=== PATIENT | female | born 1995 | race Caucasian/White ===

== ENCOUNTER 2018-08-29 12:19 | Emergency (ER) | payer OTHER, MEDICAID ==
[~2018-08-29] VITALS: Ht 162.6 cm; Wt 61.2 kg
[~2018-08-29 12:19] MED LIST: ACCUNEB SO1.25 MG/1; APAP500 PO; BCP; CYCLOBENZAPRINE5 MG PO; DOXYCYCLINE 10100 MG PO; FLEXERIL PO; GAS RELIEF125 M1 PO; IBUPROFEN 800800 M1 PO; MACROBID 100 M100 M1 PO; NAPROSYN250 MG PO; PRILOSEC40 MG PO; TRAMADOL 50 MG50 MG PO; ULTRAM 50MG TAB50 MG PO
[2018-08-29] MEDS ORDERED: DEPO-PROVER150 MG/M1 IM (12:44)
[2018-08-29 14:37] VITALS: BP 133/73
== END 2018-08-29 14:38 | disposition home or self-care (01) ==
LOC: M.ERS 12:19
DX: S40.011A Contusion of right shoulder, initial encounter (principal); X50.1XXA Overexertion from prolonged static or awkward postures, initial encounter; Y93.89 Activity, other specified; Y92.89 Other specified places as the place of occurrence of the external cause; Y99.8 Other external cause status

== ENCOUNTER 2018-09-09 09:04 | Emergency (ER) | payer OTHER, MEDICAID ==
[~2018-09-09] VITALS: Ht 162.6 cm; Wt 61.2 kg
[~2018-09-09 09:04] MED LIST changes: +DEPO-PROVER150 MG/M1 IM
[2018-09-09 10:17] LABS: ABSOLUTE BASOPHILS 0.1 thou/uL (0.0-0.2); ABSOLUTE EOSINOPHILS 0.1 thou/uL (0.0-0.7); ABSOLUTE LYMPHOCYTES 1.6 thou/uL (0.8-5.3); ABSOLUTE MONOCYTES 0.5 thou/uL (0.0-1.2); ABSOLUTE NEUTROPHILS 7.4 thou/uL (1.6-8.1); BASOPHILS 0.9 %; EOSINOPHILS 1.1 %; HEMATOCRIT 39.1 % (37.0-47.0); HEMOGLOBIN 13.2 gm/dL (12.0-15.0); LYMPHOCYTES 16.5 %; MCH 27.9 pg (26.0-34.0); MCHC 33.8 g/dL (28.0-37.0); MCV 82.5 fL (80.0-100.0); MONOCYTES 4.9 %; NUCLEATED RBCS 0 /100WBC; PLATELET COUNT* 347 thou/uL (150-400); POLYS 76.6 %; RBC 4.74 mil/uL (4.20-5.00); RDW-CV 12.4 % (10.5-14.5); WBC 9.6 thou/uL (4.0-11.0)
[2018-09-09 10:29] LABS: ALBUMIN 3.8 g/dL (3.4-5.0); CALCIUM 9.8 mg/dL (8.5-10.1); CREATININE 0.8 mg/dL (0.6-1.3); POTASSIUM 4.4 mmol/L (3.5-5.1); TOTAL BILIRUBIN 0.4 mg/dL (<0.1-1.0); TOTAL PROTEIN 8.8 g/dL (6.4-8.2)
[2018-09-09] MEDS ORDERED: BACTRIM DS TAB1 EACH PO (11:53)
[2018-09-09] MEDS ORDERED: NORCO 5-325 TA1 EACH PO (11:53)
[2018-09-09] MEDS ORDERED: KEFLEX500 M1 PO (12:19)
[2018-09-09 12:55] VITALS: BP 120/68
== END 2018-09-09 12:55 | disposition home or self-care (01) ==
LOC: M.ERS 09:04
PROVIDERS: Personal Emergency Response Attendant
DX: L02.413 Cutaneous abscess of right upper limb (principal)